=== PATIENT | female | born 1985 | race Two or more races ===

== ENCOUNTER 2017-08-21 16:28 | Emergency (ER) | payer BC, OTHER ==
[~2017-08-21] VITALS: Ht 167.6 cm; Wt 101.2 kg
[~2017-08-21 16:28] MED LIST: ACYCLOVIR400 MG ORAL; ARTIFICIAL TEAR15 M2 OP; DIABETA5 MG ORAL; LACRI-LUBE1 APPLIC LEFT EYE; METFORMIN HCL1000 M1 ORAL; NEXIUM20 MG ORAL; NORCO 5-325 TA1 EACH ORAL; PREDNISONE50 MG ORAL; VICTOZA 2-0.6 MG/0.1 SUBQ
[2017-08-21 16:50] VITALS: BP 147/74
--- NOTE | 2017-08-21 17:41 | Emergency Room Report ---
History of Present Illness General Chief Complaint: Dyspnea/Respdistress Source: Patient Present Illness HPI [id number] with known ILD on daily prednisone 10mg and myopheolic acid presents with progressively worse SOB since Friday - 6 days No cough, fever/chills States usually improves with albuterol hasnt had "exacerbation" in a while Allergies: Coded Allergies: EXENATIDE (Verified Allergy, Unknown, 08/21/17) LIRAGLUTIDE (Verified Allergy, Unknown, 08/21/17) Patient History Past Medical History: other - see HPI Past Surgical History: none Pertinent Family History: none Social History: Denies: smoking, alcohol use, drug use Last Menstrual Period: 07/25/17 Now: No Immunizations: UTD Reviewed Nursing Documentation: PMH: Agreed, PSxH: Agreed Nursing Documentation-PMH Past Medical History: No History, Except For Hx Cardiac Problems: No - Scleroderma of the lungs, Interstitial lung disease Hx Hypertension: No Hx Pacemaker: No Hx Asthma: No Hx COPD: No Hx Diabetes: Yes Hx Cancer: No Hx Gastrointestinal Problems: No Hx Dialysis: No History Of Psychiatric Problem: No Hx Neurological Problems: No Hx Cerebrovascular Accident: No Hx Seizures: No Review of Systems All Other Systems: negative except mentioned in HPI Physical Exam Vital Signs Date Time Temp Pulse Resp B/P (MAP) Pulse Ox O2 Delivery O2 Flow Rate FiO2 08/21/17 16:35 98.8 98 20 144/73 97 Room Air Sp02 EP Interpretation: reviewed, normal General Appearance: normal inspection, well appearing, alert, GCS 15, non-toxic , mild distress Head: normocephalic, atraumatic Eyes: bilateral eye PERRL, bilateral eye EOMI ENT: normal ENT inspection, hearing grossly normal, normal voice Neck: normal inspection, full range of motion, supple, no bony tend Respiratory: normal inspection, no respiratory distress, no retraction, no accessory muscle use, no wheezing, crackles, speaking full sentences Cardiovascular #1: regular rate, rhythm, no edema Gastrointestinal: normal inspection, normal bowel sounds, non tender, soft, no guarding, no hernia Genitourinary: no CVA tenderness Musculoskeletal: normal inspection, back normal, normal range of motion, Ayesha' s Sign negative Neurologic: normal inspection, alert, responsive, speech normal Psychiatric: normal inspection, judgement/insight normal, mood/affect normal Skin: normal inspection, normal color, no rash Medical Decision Making Diagnostic Impression: Primary Impression: Dyspnea Qualified Codes: R06.02 - Shortness of breath Additional Impression: ILD (interstitial lung disease) ER Course VSS. Afebrile Mild leuks likely d/t daily prednisone No metabolic abnormalities CXR without PNA, mild ILD ECG NSR Feels better after IV steroids, albuterol Endorsed to Dr Delgado at 727pm for transfer to [facility] EKG Diagnostic Results Rate: normal Rhythm: NSR ST Segments: no acute changes ASA given to the pt in ED: No Rhythm Strip Diag. Results EP Interpretation: yes Rate: 88 Rhythm: NSR, no PVC's, no ectopy Chest X-Ray Diagnostic Results Chest X-Ray Diagnostic Results : Chest X-Ray Ordered: Yes # of Views/Limited/Complete: 1 View Indication: Shortness of Breath EP Interpretation: Yes Interpretation: other - Cardiomegaly, bilateral insterstial disease Electronically Signed by: Dr Aaron Pascual MD Last Vital Signs Date Time Temp Pulse Resp B/P (MAP) Pulse Ox O2 Delivery O2 Flow Rate FiO2 08/21/17 16:35 98.8 98 20 144/73 97 Room Air Status: improved Disposition: ADMITTED INPATIENT Condition: Serious AARON PASCUAL M.D. Aug 21, 2017 17:41
[2017-08-21] MEDS ORDERED: Albuterol ud Inhalation HHN ONE (17:45)
[2017-08-21] MEDS ORDERED: Solu-MEDROL 125mg Inj IVP ONE (17:45)
[2017-08-21 18:00] VITALS: BP 126/66
[2017-08-21 18:28] LABS: BASOPHILS % (AUTO) 0.5 % (0.0-2.0); EOSINOPHILS % (AUTO) 0.4 % (0.0-3.0); LYMPHOCYTES % (AUTO) 12.7 % (20.0-45.0); MEAN CORPUSCULAR HGB CONC 28.5 G/DL (32.0-36.0); MEAN CORPUSCULAR VOLUME 74 FL (80-99); MEAN PLATELET VOLUME 7.6 FL (6.5-10.1); MONOCYTES % (AUTO) 3.6 % (1.0-10.0); NEUTROPHILS % (AUTO) 82.7 % (45.0-75.0); PLATELET COUNT 276 K/UL (150-450); RED BLOOD COUNT 5.42 M/UL (4.20-5.40); RED CELL DISTRIBUTION WIDTH 15.4 % (11.6-14.8); WHITE BLOOD COUNT 12.5 K/UL (4.8-10.8)
[2017-08-21] MEDS ORDERED: GLIPIZIDE5 MG ORAL (18:32)
[2017-08-21] MEDS ORDERED: PREDNISONE10 MG ORAL (18:32)
[2017-08-21] MEDS ORDERED: OMEPRAZOLE20 M2 ORAL (18:32)
[2017-08-21 19:03] LABS: ALANINE AMINOTRANSFERASE 45 U/L (12-78); ALBUMIN/GLOBULIN RATIO 0.9 (1.0-2.7); ANION GAP 11 (5-15); ASPARTATE AMINO TRANSFERASE 30 U/L (15-37); CALCIUM 9.6 MG/DL (8.5-10.1); CARBON DIOXIDE 22 MMOL/L (21-32); CHLORIDE 99 MMOL/L (98-107); CKMB 0.6 NG/ML (0.0-3.6); CREATININE 0.6 MG/DL (0.55-1.30); GLOMERULAR FILTRATION RATE > 60 mL/min (>60); POTASSIUM 4.1 MMOL/L (3.5-5.1); SODIUM 132 MMOL/L (136-145); TOTAL PROTEIN 8.7 G/DL (6.4-8.2)
[2017-08-21 20:00] VITALS: BP 145/73
[2017-08-21 20:26] VITALS: BP 145/73
--- NOTE | 2017-08-22 12:56 | Diagnostic Imaging Report ---
Indication: Dyspnea Comparison: 10/05/14 A single view chest radiograph was obtained. Findings: Heart size is normal. Lung volumes are low. Only vascularity is prominent. Interstitium is prominent. Bones are unremarkable. Impression: Suspect mild interstitial edema. Please correlate
--- NOTE | 2017-09-02 08:41 | Cardiology Report ---
APPROVED REPORT EKG Measurement Heart [id number] Normal sinus rhythm Normal ECG
== END 2017-08-21 20:30 | disposition short-term general hospital (02) ==
LOC: EDBEDREQ 17:46 → EMR 17:52
DX: R06.00 Dyspnea, unspecified (principal); J84.9 Interstitial pulmonary disease, unspecified; E11.9 Type 2 diabetes mellitus without complications
CPT/HCPCS: 36415; 71010; 80053; 80300; 82550; 82553; 84484; 85025; 93005; 99285; J2930